=== PATIENT | male | born 1985 | race Asian ===

== ENCOUNTER 2017-02-02 15:55 | Emergency (ER) | payer BC ==
[2017-02-02 18:32] VITALS: BP 120/67
== END 2017-02-02 18:32 | disposition home or self-care (01) ==
LOC: ED 15:55
DX: S62.101A Fracture of unspecified carpal bone, right wrist, initial encounter for closed fracture (principal); F17.200 Nicotine dependence, unspecified, uncomplicated; V18.0XXA Pedal cycle driver injured in noncollision transport accident in nontraffic accident, initial encounter; Y93.89 Activity, other specified; Y92.89 Other specified places as the place of occurrence of the external cause; Y99.8 Other external cause status
CPT/HCPCS: 99406; Q0092

== ENCOUNTER 2019-10-09 02:25 | Emergency (ER) | payer BC ==
[~2019-10-09] VITALS: Ht 162.6 cm; Wt 73.0 kg
[2019-10-09 02:54] VITALS: BP 137/90
== END 2019-10-09 02:54 | disposition home or self-care (01) ==
LOC: ED 02:25
DX: J40 Bronchitis, not specified as acute or chronic (principal); F17.210 Nicotine dependence, cigarettes, uncomplicated

== ENCOUNTER 2020-07-04 05:59 | Emergency (ER) | payer BC ==
[~2020-07-04] VITALS: Ht 165.1 cm; Wt 64.0 kg
[2020-07-04 06:16] VITALS: Ht 165.1 cm; Wt 64.0 kg
[2020-07-04 07:28] VITALS: BP 129/80
== END 2020-07-04 07:28 | disposition home or self-care (01) ==
LOC: ED 05:59
DX: H72.92 Unspecified perforation of tympanic membrane, left ear (principal); H66.92 Otitis media, unspecified, left ear